=== PATIENT | female | born 1980 ===

== ENCOUNTER 2021-04-07 05:28 | Emergency (ER) | payer MEDICAID ==
[~2021-04-07] VITALS: Ht 160 cm; Wt 97.5 kg
[2021-04-07 08:06] VITALS: BP 134/81
== END 2021-04-07 10:19 | disposition home or self-care (01) ==
LOC: ER 05:28
DX: S83.91XA Sprain of unspecified site of right knee, initial encounter (principal); M17.11 Unilateral primary osteoarthritis, right knee; X58.XXXA Exposure to other specified factors, initial encounter; Y93.89 Activity, other specified; Y92.89 Other specified places as the place of occurrence of the external cause; Y99.8 Other external cause status
CPT/HCPCS: 29505; 73562; 83880